=== PATIENT | female | born 1990 | race Caucasian/White ===

== ENCOUNTER 2017-10-09 17:35 | Emergency (ER) | payer OTHER ==
[~2017-10-09] VITALS: Ht 160 cm; Wt 54.4 kg
[~2017-10-09 17:35] MED LIST: ACETAMINOPHEN-1 EAC1 PO; AMOXICILLIN 50500 MG PO; MEDROLDOSEPACK PO; ROBAXIN 750 MG750 M1 PO
[2017-10-09 17:46] VITALS: BP 112/84
[2017-10-09] MEDS ORDERED: CIPROFLOXIN HC2.5 M1 OPHTHALMIC (18:33)
== END 2017-10-09 18:41 | disposition home or self-care (01) ==
LOC: M.ERS 17:35
DX: H57.8 Other specified disorders of eye and adnexa (principal)